=== PATIENT | male | born 1950 | race Caucasian/White ===

== ENCOUNTER 2016-11-29 20:15 | Emergency (ER) | payer BC, MEDICARE ==
--- NOTE | 2016-11-29 22:23 | ER Document Report ---
ED ENT - General Chief Complaint: Foreign Body in Ear Stated Complaint: FOREIGN OBJECT IN EAR Time Seen by Provider: 11/29/16 22:22 Mode of Arrival: Ambulatory Information source: Patient Notes: Patient is a 66-year-old male who presents to the ER today for part of his hearing aid stuck in his left ear. Past Medical History - General Information source: Patient - Social History Smoking Status: Unknown if Ever Smoked Family History: Reviewed & Not Pertinent Review of Systems - Review of Systems Constitutional: No symptoms reported EENT: See HPI Cardiovascular: No symptoms reported Respiratory: No symptoms reported Physical Exam - Vital signs Vitals: Temp Pulse Resp BP Pulse Ox 97.5 F 50 L 20 145/85 H 99 11/29/16 22:45 11/29/16 22:45 11/29/16 22:45 11/29/16 22:45 11/29/16 22:45 - Notes Notes: PHYSICAL EXAMINATION: GENERAL: Well-appearing and in no acute distress. HEAD: Atraumatic, normocephalic. EYES: Pupils equal round and reactive to light, extraocular movements intact, sclera anicteric, conjunctiva are normal. ENT: Left ear canal with plastic piece of hearing aid lodged in canal NECK: Normal range of motion, supple without lymphadenopathy LUNGS: CTAB and equal. No wheezes rales or rhonchi. HEART: Regular rate and rhythm without murmurs Course - Re-evaluation Re-evalutation: 11/29/16 22:29 Foreign body was removed from patient's year successfully without any couple occasions. - Vital Signs Vital signs: Temp Pulse Resp BP Pulse Ox 97.5 F 50 L 20 145/85 H 99 11/29/16 22:45 11/29/16 22:45 11/29/16 22:45 11/29/16 22:45 11/29/16 22:45 Discharge - Discharge Clinical Impression: Foreign body in ear Qualifiers: Encounter type: initial encounter Laterality: left Qualified Code(s): T16.2XXA - Foreign body in left ear, initial encounter Condition: Stable Disposition: HOME, SELF-CARE Additional Instructions: Return immediately for any new or worsening symptoms. Follow up with primary care provider, call tomorrow to make followup appointment.
[2016-11-29 22:50] VITALS: BP 145/85
== END 2016-11-29 22:50 | disposition home or self-care (01) ==
LOC: ER 20:15
DX: T16.2XXA Foreign body in left ear, initial encounter (principal); X58.XXXA Exposure to other specified factors, initial encounter
CPT/HCPCS: 99282